=== PATIENT | female | born 1990 | race Caucasian/White ===

== ENCOUNTER 2016-10-23 15:49 | Emergency (ER) | payer OTHER ==
[~2016-10-23] VITALS: Ht 172.7 cm; Wt 106.6 kg
[~2016-10-23 15:49] MED LIST: AUGMENTIN 875-1 EACH PO; CIPRO500 M1 PO; PYRIDIUM200 M1 PO
--- NOTE | 2016-10-23 16:20 | ED GENERAL ADULT ---
History of Present Illness General Chief Complaint: General Adult Stated Complaint: CONGESTION,BODY ACHES Source: patient Exam Limitations: no limitations Vital Signs & Intake/Output Vital Signs & Intake/Output Vital Signs Date Time Temp Pulse Resp B/P Pulse O2 O2 Flow FiO2 Ox Delivery Rate 10/23 1755 85 126/84 10/23 1600 98.2 71 18 121/85 99 Room Air Allergies Coded Allergies: No Known Allergies (02/14/16) Reconcile Medications Naproxen (Naprosyn) 500 MG TABLET 1 TAB PO BID inflammation/pain Triage Note: 26 YEAR OLD FEMALE STATES THAT SHE WAS TREATED WITH ABT 10/11 FOR SINUS INFECTION AND FEELS LIKE SHE IS JUST NOT GETTING BETTER, STATES THAT SHE DIDN'T CALL HER PMD BECAUSE SHE CAN NEVER GET THROUGH TO HIM Triage Nurses Notes Reviewed? yes Onset: Gradual Duration: week(s): (2) Timing: recent history Injury Environment: home Severity: moderate Severity Numbers: 7 No Modifying Factors: none Associated Symptoms: cough : No Patient currently breastfeeds: No HPI: Patient is a 26-year-old female presenting to the emergency department with chief complaint of upper respiratory congestion, sinus pressure, sore throat, malaise of been going on for the past 2 weeks. She was recently treated for sinus infection on Augmentin and given Flonase with little relief in symptoms. She's been drinking fluids without difficulty. Denies any urinary symptoms. No abdominal pain. She does report lightheadedness and dizziness intermittently. Denies any visual changes. No headaches. Denies rashes. No diarrhea. No sick contacts or recent travel. (TONIO FINCH) Past History Travel History Traveled to [place] past 21 day No Medical History Any Pertinent Medical History? see below for history Neurological: NONE EENT: NONE Cardiovascular: NONE Respiratory: NONE Gastrointestinal: NONE Hepatic: NONE Renal: NONE Musculoskeletal: NONE Psychiatric: NONE Endocrine: NONE Blood Disorders: NONE Cancer(s): NONE Surgical History Surgical History: N Psychosocial History What is your primary language Divehi Tobacco Use: Never used ETOH Use: denies use Illicit Drug Use: denies illicit drug use Family History Hx Contributory? No (TONIO FINCH) Review of Systems Review of Systems Constitutional: Reports: malaise. Comments Review of systems: See HPI, All other systems negative. Constitutional, no fever or weight loss HEENT: No visual changes Cardiovascular: No chest pain ,palpitation , orthopnea or ankle swelling Skin, no jaundice no rashes Respiratory: No dyspnea sputum or hemoptysis GI: No nausea no vomiting : No dysuria No hematuria Muscle skeletal: no back pain, no neck pain, Neurologic: No numbness no confusion Psych: No stress anxiety or depression,. Heme/endocrine: No bruising no bleeding no polyuria or polydipsia Immunology: No splenectomy or history of AIDS (TONIO FINCH) Physical Exam Physical Exam General Appearance: well developed/nourished, no apparent distress, alert, awake , comfortable Comments: Well-developed well-nourished person in no acute distress HEENT: extraocular motion intact, no nystagmus. Pupils equally round and reactive to light and accommodation. Nose is atraumatic. External auditory canal and Tympanic membranes clear. Pharynx mildly erythematous, no exudate, uvula midline. No swelling or edema. Mild tenderness to palpation of the maxillary sinuses bilaterally. Neck: Supple, large anterior cervical lymphadenopathy that is mildly tender to palpation bilaterally, normal range of motion without pain or tenderness Back: Nontender Cardiovascular: Regular rate and rhythms no murmurs rubs or gallops, normal JVP Respiratory: Chest nontender. No respiratory distress.breath sounds clear to auscultation bilaterally Extremity: No edema Neuro: Alert oriented x3 Skin: No appreciable rash on exposed skin, skin is warm and dry. Psych: Mood and affect is normal, memory and judgment is normal. Core Measures ACS in differential dx? No CVA/TIA Diagnosis: No Severe Sepsis Present: No Septic Shock Present: No (TONIO FINCH) Progress Differential Diagnoses I considered the following diagnoses in my evaluation of the patient: Sinusitis , upper respiratory infection nonsynthetic lymphadenopathy, mono, strep, influenza, electrolyte abnormality Plan of Care: Orders Procedure Date/time Status RAPID VIRAL INFLUENZA A 10/23 1620 Complete THROAT CULTURE W/QUICK STREP 10/23 162 Active URINE 10/23 162 Active URINALYSIS 10/23 162 Active MONOSPOT TEST 10/23 162 Complete COMPREHENSIVE METABOLIC PANEL 10/23 162 Complete CBC WITHOUT DIFFERENTIAL 10/23 1620 Complete Laboratory Tests 10/23/16 1632: Urine Color Pending, Urine Clarity Pending, Urine pH Pending, Ur Specific Mcroberts Pending, Urine Protein Pending, Urine Ketones Pending, Urine Nitrite Pending, Urine Bilirubin Pending, Urine Urobilinogen Pending, Ur Leukocyte Esterase Pending, Ur Microscopic SEDIMENT EXAMINED, Urine RBC Pending, Urine Hemoglobin Pending, Urine Glucose Pending, Urine Test NEGATIVE 10/23/16 1630: Anion Gap 11, Estimated GFR > 60, BUN/Creatinine Ratio 11.4, Glucose 90, Calcium 8.8, Total Bilirubin 0.4, AST 39 H, ALT 30, Alkaline Phosphatase 81, Total Protein 6.8, Albumin 3.9, Globulin 2.9, Albumin/Globulin Ratio 1.3, CBC w Diff NO MAN DIFF REQ, RBC 4.35, MCV 88.7, MCH 30.3, RDW 12.6, MPV 7.6, Gran % 71.6, Lymphocytes % 21.9, Monocytes % 4.1, Eosinophils % 1.8, Basophils % 0.6, Absolute Granulocytes 5.1, Absolute Lymphocytes 1.5, Absolute Monocytes 0.3, Absolute Eosinophils 0.1, Absolute Basophils 0, PUBS MCHC 34.1, Infectious [place] Titer NEGATIVE Initial ED EKG: none Comments: Patient reports improvement after IM Toradol. Patient informed of all lab results. Likely viral syndrome. She'll follow-up with her primary care physician. (TONIO FINCH) Departure Departure Time of Disposition: 1744 Disposition: HOME OR SELF CARE Condition: Stable Clinical Impression Primary Impression: Upper respiratory infection Qualifiers: URI type: unspecified viral URI Qualified Codes: J06.9 - Acute upper respiratory infection, unspecified; B97.89 - Other viral agents as the cause of diseases classified elsewhere Secondary Impressions: Lymphadenopathy Referrals: WILDA BUTLER MD (PCP/Family) Additional Instructions: Follow-up with a primary care physician call to make appointment. Take anti- inflammatories prescribed. Increase fluids. Departure Forms: Customer Survey General Discharge Information Prescriptions: Current Visit Scripts Naproxen (Naprosyn) 1 TAB PO BID #20 TAB (TONIO FINCH) PA/INTEGRATION LEAD Co-Sign Statement Statement: ED Attending supervision documentation- [] I saw and evaluated the patient. I have also reviewed all the pertinent lab results and diagnostic results. I agree with the findings and the plan of care as documented in the PA's/INTEGRATION LEAD's documentation. x I have reviewed the ED Record and agree with the PA's/INTEGRATION LEAD's documentation. [] Additions or exceptions (if any) to the PAs/INTEGRATION LEAD's note and plan are summarized below: [] (SUZANNE JOY,ABEL) Critical Care Note Critical Care Note Critical Care Time: non-applicable (SILVIO SCHMITT,TONIO)
[2016-10-23 16:36] LABS: ABSOLUTE BASOPHIL COUNT 0 /CUMM (0.0-0.2); ABSOLUTE EOSINOPHIL COUNT 0.1 /CUMM (0.0-0.7); ABSOLUTE GRANULOCYTE CT 5.1 /CUMM (1.4-6.5); ABSOLUTE LYMPH COUNT 1.5 /CUMM (1.2-3.4); ABSOLUTE MONOCYTE COUNT 0.3 /CUMM (0.10-0.60); BASOPHIL % 0.6 % (0.0-2.0); EOSINOPHIL % 1.8 % (0-5); GRANULOCYTE % 71.6 % (42.2-75.2); HEMATOCRIT 38.6 % (37-47); MEAN CORPUSCULAR HGB 30.3 PG (27.0-31.0); MEAN CORPUSCULAR HGB CONC 34.1 G/DL (33.0-37.0); MEAN CORPUSCULAR VOLUME 88.7 FL (81.0-99.0); MEAN PLATELET VOLUME 7.6 FL (7.4-10.4); PLATELET COUNT 186 /CUMM (130-400); RBC DISTRIBUTION WIDTH 12.6 % (11.5-14.5); RED BLOOD CELL CT 4.35 /CUMM (4.20-5.40); WHITE BLOOD CELL COUNT 7.1 /CUMM (4.8-10.8)
[2016-10-23] MEDS ORDERED: NAPROSYN500 M1 PO (17:47)
[2016-10-23 17:55] VITALS: BP 126/84
== END 2016-10-23 17:55 ==
LOC: ERH 15:49
PROVIDERS: Physician Assistant
DX: J06.9 Acute upper respiratory infection, unspecified (principal); R59.1 Generalized enlarged lymph nodes
CPT/HCPCS: 81001; 81025; 87804; 87804-59; 96372; J1885